=== PATIENT | male | born 1970 | race Two or more races ===

== ENCOUNTER 2024-03-24 07:55 | Day surgery (SDC) | payer MEDICAID, SELFPAY ==
--- NOTE | 2024-03-23 07:00 | EKG_ITS ---
[facility] Test Date: 2024-03-23 Pat Name: SUZIE POLLOCK Department: Room: - Gender: Male Communications Clerk: JACKLYN : 1970 Requested By: David Jones Order Number: [id number] Reading MD: David Jones Measurements Intervals [place] Rate: 51 P: 9 WV: 133 QRS: -27 QRSD: 81 T: 65 QT: 463 QTc: 427 Interpretive Statements SINUS BRADYCARDIA BORDERLINE LEFT AXIS DEVIATION No previous ECG available for comparison /[id number].pdf
[2024-03-23 07:50] VITALS: BMI 38.5
[2024-03-23 08:21] LABS: Collection Type, Urine Clean Catch
[2024-03-23 09:07] LABS: Alanine Aminotransferase 15 U/L (10-49); Albumin, Serum 4.3 gm/dL (3.5-5.0); Albumin/Globulin Ratio 1.3 (1.2-2.2); Alkaline Phosphatase 130 U/L (46-116); Anion Gap 5 (7-16); Aspartate Amino Transferase 28 U/L (0-34); BUN/Creatinine Ratio 13 Ratio (12-20); Bilirubin,Total 0.9 mg/dL (0.3-1.2); Blood Urea Nitrogen 16 mg/dL (9-23); Calcium 9.5 mg/dL (8.3-10.6); Calcium (Corrected) 9.5 mg/dL (8.5-10.1); Chloride 104 mMol/L (98-107); Creatinine (Component) 1.2 mg/dL (0.6-1.3); Estimated Creatinine Clearance 93.2 mL/min (>60); Globulin 3.4 gm/dL (2.3-3.5); Glucose 115 mg/dL (74-106); Osmolality,Calculated 279 (275-295); Potassium 3.9 mMol/L (3.4-5.1); Sodium 139 mMol/L (136-145); Total Protein 7.7 gm/dL (5.7-8.2); eGFR > 60 See Note
[2024-03-23 09:10] LABS: Basophils # (Auto) 0.1 Thou/mm3 (0.0-0.2); Basophils % (Auto) 1 % (0-2.5); Eosinophils # (Auto) 0.1 Thou/mm3 (0.0-0.5); Eosinophils % (Auto) 1 % (0-10); Hematocrit 44.6 % (41.0-53.0); Hemoglobin 15.6 g/dL (13.5-16.0); Immature Granulocytes % (Auto) 0 % (0-0); Immature Granulocytes Auto 0.02 Thou/mm3 (0.00-0.00); Lymphocytes # (Auto) 2.7 Thou/mm3 (1.0-4.8); Lymphocytes % (Auto) 26 % (10-50); Mean Corpuscular Hemoglobin 27.7 pg (25.0-35.0); Mean Corpuscular Volume 79 fL (80-100); Monocytes # (Auto) 0.7 Thou/mm3 (0.0-0.8); Monocytes % (Auto) 7 % (0-12); Neutrophils # (Auto) 6.7 Thou/mm3 (1.8-7.7); Neutrophils % (Auto) 65 % (37-80); Nucleated Red Blood Cell % 0 /100 WBC (0); Platelet Count 331 Thou/mm3 (140-440); RDW Standard Deviation 36.7 fL (35.1-43.9); Red Blood Count 5.64 Miln/mm3 (4.50-5.90); White Blood Count 10.3 Thou/mm3 (3.8-10.6)
[2024-03-23 09:55] LABS: Bilirubin,Urine Negative (Negative); Blood,Urine Negative (Negative); Clarity,Urine Clear (Clear/Hazy); Color,Urine Yellow (Lt Yel-Yel); Glucose, Urine Negative (Negative); Hyaline Casts,Urine < 1 /hpf (0-1); Ketones,Urine Negative (Negative); Leukocyte Esterase,Urine Negative (Negative); Nitrite,Urine Negative (Negative); Protein,Urine Negative (Neg - Trace); RBC,Urine 2 /hpf (0-3); Squamous Epithelial Cell,Urine < 1 /hpf (0-5); WBC,Urine 1 /hpf (0-5)
--- NOTE | 2024-03-23 18:10 | ESHP_ITS ---
RE: SUZIE POLLOCK : 1970 DATE OF ADMISSION: 03/24/2024 HISTORY OF PRESENT ILLNESS: Suzie Pollock is a 53-year-old gentleman who was referred to me with a history of left testicular swelling. The swelling has been there for more than three months, which has been bothering him. The patient has been urinating well. PAST SURGICAL HISTORY: Previous surgery is none. PAST MEDICAL HISTORY: He has a history of hypertension and no history of diabetes mellitus. He also has an anxiety problem. SOCIAL HISTORY: He has three children. ALLERGIES: HE IS ALLERGIC TO LISINOPRIL. HOME MEDICATIONS: He takes, 1. Metoprolol. 2. Losartan. 3. Norvasc. 4. Trazodone. 5. Statin medications for high cholesterol. PHYSICAL EXAMINATION: HEENT: Normal. NECK: Supple. LUNGS: Clear. CARDIOVASCULAR: Heart sounds are normal. ABDOMEN: Soft. The patient weighs 275 pounds. GENITOURINARY: Phallus is normal. Testes are down in the scrotum. There is a 2 cm swelling, which is quite hard outside the left testis. DIAGNOSIS: Left scrotal mass, possible epididymitis or epididymal tumor on the left side in the upper pole of the epididymis. PLAN: Excision of the left scrotal mass. Planned procedure, risks and complications have been discussed with the patient. The patient has understood them and agreed to proceed. DT: 15:57:13 TT: 17:15:00 Ref: [id number] - TID: [id number]
[2024-03-24 08:34] VITALS: BP 132/82; PULSE 56; RESP 16; TEMP 36.4; O2SAT 97; BMI 39.0
[2024-03-24] MEDS: RINGERS LACTATED 1000 ML 1,000 ML 20 ML IV (08:43)
[2024-03-24 10:58] VITALS: BP 141/84; PULSE 71; RESP 12; TEMP 36.9; O2SAT 97
--- NOTE | 2024-03-24 10:58 | SUR.PHASEI ---
1058 Patient arrived to recovery resting comfortably in [facility], drowsy and able to arose with verbal prompting, on oxygen 6L via oxy mask, breathing unlabored, vital signs stable, denies pain, dressing intact to scrotal area; dissolvable sutures, telfa, gauze, scrotal support, no bleeding noted, lung sounds clear upon auscultation, bilateral radial pulses present when palpated, report received from Neftali NICHOLS and Dr. Jackson
[2024-03-24 11:03] VITALS: BP 133/72; PULSE 59; RESP 12; O2SAT 97
[2024-03-24 11:08] VITALS: BP 124/66; PULSE 60; RESP 13; O2SAT 97
[2024-03-24 11:13] VITALS: BP 123/74; PULSE 61; RESP 15; O2SAT 96
[2024-03-24 11:28] VITALS: BP 135/74; PULSE 58; RESP 14; O2SAT 99
--- NOTE | 2024-03-24 11:46 | SUR.PHASEII ---
1146 Patient meets discharge criteria from recovery, awake and alert, breathing unlabored, vital signs stable, denies pain, dressing intact; no bleeding noted, patient eating jello and drinking juice; tolerating well, denies nausea, patient able to dress himself into his clothing, discharge instructions given to patient and patients daughter, daughter signed discharge instructions. Patient given all his belongings prior to discharge, transported via wheelchair and left in a private vehicle.
--- NOTE | 2024-03-24 11:48 | ESOP_ITS ---
RE: SUZIE POLLOCK : 1970 DATE OF OPERATION: 03/24/2024 PREOPERATIVE DIAGNOSIS: Painful left scrotal mass. POSTOPERATIVE DIAGNOSIS: A 2-3 cm left scrotal mass above the left testis. PROCEDURE PERFORMED: Excision of the painful left scrotal mass above the left testis. ANESTHESIA: General. INDICATION: The patient is a 53-year-old gentleman with a left scrotal mass. This has been bothering him. The patient never had a vasectomy done in the past. He has an indurated mass, very hard in consistency located above the left testis, which is about 2 to 3 cm in size. The patient was now scheduled to have removal of the left scrotal mass. Planned procedure, risks and complications have been discussed with the patient. The patient understood them and agreed to proceed. DESCRIPTION OF PROCEDURE: After the patient was brought to the operating table under adequate general anesthesia and supine position, parts were prepped and draped in the usual fashion. Left scrotal vertical incision was then made approximately 3 cm long. Skin and subcutaneous tissues were incised. The left testis was delivered out of the incision and the tunica vaginalis sac was opened. The left testis was delivered. The left testis appeared to be normal. The patient does have a mass above the left testis. The epididymis appears to be normal. The patient had a prominent appendix of the left testis, which was excised and fulgurated. The left scrotal mass above the left testis, which is about 2 to 3 cm long and hard in consistency was probably related to the left vas deferens. This was carefully excised. Again, this mass is separate from the left testis and the peritoneal mass appears to be also normal. Complete hemostasis was obtained. The mass was sent for examination. The scrotal wound was closed in layers using 3-0 chromic gut sutures. Local anesthetic was injected at the site of skin. Sterile dressing was then applied. The patient was then transferred to the recovery room in a satisfactory condition having tolerated the entire procedure well. Sponge count and needle count at the end of the procedure were found to be correct. Estimated blood loss was approximately 5 mL. DT: 11:15:27 TT: 11:47:00 Ref: [id number] - TID: [id number]
== END 2024-03-24 11:46 | disposition home or self-care (01) ==
PROVIDERS: Anesthesiology; PCP Family Medicine; Referring Provider Surgery; Visit Provider Surgery
PROC: (CPT 55110; principal; 2024-03-24 10:00)
DX: N45.1 Epididymitis (principal); I10 Essential (primary) hypertension; N50.9 Disorder of male genital organs, unspecified; Z01.810 Encounter for preprocedural cardiovascular examination; F41.9 Anxiety disorder, unspecified
CPT/HCPCS: 54840; 36415; 80053; 81001; 85025; 93005; A4217; A4649; J2250; J2704; J3010; J3490; J7120; A9270; J0665